=== PATIENT | female | born 1965 | race Caucasian/White ===

== ENCOUNTER 2023-12-13 15:31 | Outpatient (CLI) | payer MEDICAID | END 2023-12-13 23:59 | disposition home or self-care (01) | LOC: RAD 15:31 | PROVIDERS: ATTEND Nurse Practitioner Family | DX: Z53.9 Procedure and treatment not carried out, unspecified reason (principal) ==

== ENCOUNTER 2023-12-30 10:26 | Outpatient (CLI) | payer MEDICAID ==
[~2023-12-30] VITALS: Ht 154.9 cm; Wt 59.0 kg
[2023-12-30 10:57] LABS: ABG BASE EXCESS 2.9 mmol/L (-2.0-3.0); ABG HCO3 25.7 mmol/L (21.0-28.0); ABG OXYGEN SATURATION 94.5 % (94.0-98.0); ABG PCO2 (T) 34.4 mmHg (32.0-45.0); ABG PH (T) 7.492 (7.350-7.450); ABG PO2 (T) 66.3 mmHg (83.0-108.0); FCOHb 6.5 % (0.5-1.5); FHHb 5.1 % (0.0-5.0); FMetHb 0.3 % (0.0-1.5); FO2Hb 88.1 % (94.0-98.0); MODE ROOM AIR; TOTAL HEMOGLOBIN 15.3 G/dl (12.0-16.0)
[2023-12-30] MEDS: albuterol 2.5 MG/3 ML nebule NEB ONE (11:18)
[2023-12-30 11:23] VITALS: PULSE 108; RESP 16; O2SAT 95
[2023-12-30 11:35] VITALS: PULSE 96; RESP 18
== END 2023-12-30 23:59 | disposition home or self-care (01) ==
LOC: RT 10:26
PROVIDERS: ATTEND Nurse Practitioner Family
DX: J45.40 Moderate persistent asthma, uncomplicated (principal)
CPT/HCPCS: 36600; 82803; 85018; 94060; 94729; 94760